=== PATIENT | male | born 1935 | race Caucasian/White ===

== ENCOUNTER 2016-09-20 06:27 | Inpatient (IN) | payer MEDICARE, MEDICAID ==
[2016-08-30 11:55] VITALS: BMI 30.2
[2016-08-30 12:31] VITALS: BP_SYST 142; RESP 20; TEMP 98.3
[2016-09-20] VITALS (23 sets, daily range): BP systolic 94–172; RESP 12–28; TEMP 97–98.7
[~2016-09-20] VITALS: Ht 167.6 cm; Wt 84.8 kg
[2016-09-20] MEDS ORDERED: TRANEXAMIC ACID IV ONE ×4 (06:35)
[2016-09-20] MEDS ORDERED: CEFAZOLIN 2,000 MG in SODIUM CHLORIDE 0.9% 100 ML IV ONE (06:35)
[2016-09-20] MEDS ORDERED: ROPIVACAINE 0.5% 139 MG, EPINEPHrine 1:1,000 0.2 MG, KETOROLAC INJ 30 MG, MORPHINE 10 MG SUBQ ONE ×4 (06:35)
[2016-09-20] MEDS ORDERED: SODIUM CHLORIDE 0.9% IV ONE ×4 (06:35)
[2016-09-20] MEDS ORDERED: ONDANSETRON 4 MG VIAL IV PRN (07:05)
[2016-09-20] MEDS ORDERED: MEPERIDINE 25 MG/ML IV PRN (07:05)
[2016-09-20] MEDS ORDERED: MORPHINE 4 MG/ML SYR IV PRN ×2 (07:05→09:10)
[2016-09-20] MEDS ORDERED: DILAUDID 1 MG/ML AMP IV PRN (07:05)
[2016-09-20] MEDS ORDERED: OXYCODONE 5 MG TAB PO PRN (07:05)
[2016-09-20] MEDS ORDERED: MORPHINE 2 MG/ML SYR IV PRN ×2 (07:05→09:10)
[2016-09-20] MEDS ORDERED: LIDOCAINE 1% BUFFERED 1 ML SYR INTRADERM PRN (07:10)
[2016-09-20] MEDS ORDERED: LACT RINGERS 1,000 ML IV SCH (07:10)
[2016-09-20] MEDS ORDERED: MIDAZOLAM 2 MG/2 ML INJ IV ONE (07:10)
[2016-09-20] MEDS ORDERED: GLYCOPYRROLATE 0.2 MG/ML VIAL IV ONE ×2 (07:10→11:17)
[2016-09-20] MEDS ORDERED: KETOROLAC 30 MG/ML VIAL IV PRN (09:10)
[2016-09-20] MEDS ORDERED: ACETAMINOPHEN 325 MG TAB PO PRN (09:10)
[2016-09-20] MEDS ORDERED: DIPHENHYDRAMINE 25 MG CAP PO PRN (09:10)
[2016-09-20] MEDS ORDERED: BACITRACIN 50,000 UNITS INJ IRRIG ONE (11:14)
[2016-09-20] MEDS ORDERED: NEOSTIGMINE 10 MG/10 ML VIAL IV ONE (11:17)
[2016-09-20] MEDS ORDERED: FENTANYL 100 MCG/2 ML AMP IV ONE (11:17)
[2016-09-20] MEDS ORDERED: ROCURONIUM 50 MG VIAL IV ONE (11:17)
[2016-09-20] MEDS ORDERED: ONDANSETRON 4 MG VIAL IV PUSH ONE (11:17)
[2016-09-20] MEDS ORDERED: LIDOCAINE 2% SYR 5 ML IV ONE (11:17)
[2016-09-20] MEDS ORDERED: PROPOFOL 50ML VIAL IV ONE (11:17)
[2016-09-20] MEDS ORDERED: ACETAMINOPHEN 1,000 MG/100 ML IV ONE (11:17)
[2016-09-20] MEDS ORDERED: DILAUDID 1 MG/ML AMP IV ONE (11:17)
[2016-09-20] MEDS ORDERED: DEXAMETHASONE 4 MG/ML VIAL IV ONE (11:17)
[2016-09-20] MEDS ORDERED: MISSING DOSE XX ONE (12:25)
[2016-09-20] MEDS: CEFAZOLIN 2,000 MG in SODIUM CHLORIDE 0.9% 100 ML IV SCH ×2 (12:34→19:31)
[2016-09-20] MEDS: LACT RINGERS 1,000 ML IV SCH (12:35)
[2016-09-20] MEDS: PANTOPRAZOLE 20 MG TAB PO SCH (12:52)
[2016-09-20] MEDS: ONDANSETRON 4 MG VIAL IV PRN ×2 (13:57→20:24)
[2016-09-20] MEDS: CALCIUM CARB/VIT D3 600 MG TAB PO SCH (14:52)
[2016-09-20] MEDS: SENNA 8.6 MG TAB PO SCH (21:29)
[2016-09-20] MEDS: DOCUSATE SOD 100 MG CAP PO SCH (21:29)
[2016-09-20] MEDS: DONEPEZIL HCL 5 MG TAB PO SCH (21:29)
[2016-09-21] VITALS (8 sets, daily range): BP systolic 127–158; RESP 16–20; TEMP 98.1–99.9; Ht 167.6 cm; Wt 84.8 kg
[2016-09-21] MEDS: CEFAZOLIN 2,000 MG in SODIUM CHLORIDE 0.9% 100 ML IV SCH ×2 (00:26→06:32)
[2016-09-21] MEDS: TEMAZEPAM 15 MG CAP PO PRN (00:26)
[2016-09-21] MEDS: LACT RINGERS 1,000 ML IV SCH (00:54)
[2016-09-21] MEDS ORDERED: SODIUM CHLORIDE 0.9% FLUSH BAG 500 ML IV PRN (06:00)
[2016-09-21] MEDS ORDERED: SALINE FLUSH 10 ML FLUSH PRN (06:00)
[2016-09-21] MEDS: ENOXAPARIN 40 MG/0.4 ML SYR SUBQ SCH (06:32)
[2016-09-21] MEDS: PANTOPRAZOLE 20 MG TAB PO SCH (06:32)
[2016-09-21] MEDS: CALCIUM CARB/VIT D3 600 MG TAB PO SCH (08:22)
[2016-09-21] MEDS: POLYETHYLENE GLYCOL 17 GM PACKET PO SCH (08:22)
[2016-09-21] MEDS: MAG HYDROX 30 ML UDC PO SCH (08:22)
[2016-09-21] MEDS: DOCUSATE SOD 100 MG CAP PO SCH ×2 (08:22→22:15)
[2016-09-21] MEDS: SALINE FLUSH 10 ML FLUSH SCH ×2 (08:22→22:14)
[2016-09-21] MEDS: SENNA 8.6 MG TAB PO SCH ×2 (08:22→22:16)
[2016-09-21] MEDS: FLINTSTONES COMPLETE PO SCH (08:22)
[2016-09-21] MEDS ORDERED: BISACODYL 10 MG SUPP RECTAL PRN (10:20)
[2016-09-21] MEDS ORDERED: FLEET ENEMA 132 ML BTL RECTAL PRN (10:20)
[2016-09-21] MEDS: CYANOCOBALAMIN 1000 MCG/ML VIAL IM SCH (14:52)
[2016-09-21] MEDS: IRON SUCROSE COMPLEX 400 MG in SODIUM CHLORIDE 0.9% 250 ML IV SCH (14:52)
[2016-09-21] MEDS: DONEPEZIL HCL 5 MG TAB PO SCH (21:00)
[2016-09-22] MEDS: TEMAZEPAM 15 MG CAP PO PRN (01:00)
[2016-09-22 04:53] VITALS: BP_SYST 139; RESP 22; TEMP 99.1
[2016-09-22] MEDS: ENOXAPARIN 40 MG/0.4 ML SYR SUBQ SCH (07:04)
[2016-09-22] MEDS: PANTOPRAZOLE 40 MG TAB PO SCH (07:07)
[2016-09-22 07:45] VITALS: BP_SYST 143; RESP 20; TEMP 98.8
[2016-09-22] MEDS ORDERED: MISSING DOSE XX ONE (10:00)
[2016-09-22] MEDS: DOCUSATE SOD 100 MG CAP PO SCH ×2 (10:01→21:39)
[2016-09-22] MEDS: SENNA 8.6 MG TAB PO SCH ×2 (10:01→21:39)
[2016-09-22] MEDS: MAG HYDROX 30 ML UDC PO SCH (10:01)
[2016-09-22] MEDS: FLINTSTONES COMPLETE PO SCH (10:01)
[2016-09-22] MEDS: CALCIUM CARB/VIT D3 600 MG TAB PO SCH (10:01)
[2016-09-22] MEDS: SALINE FLUSH 10 ML FLUSH SCH ×2 (10:01→21:39)
[2016-09-22] MEDS: POLYETHYLENE GLYCOL 17 GM PACKET PO SCH (10:01)
[2016-09-22] MEDS: IRON SUCROSE COMPLEX 400 MG in SODIUM CHLORIDE 0.9% 250 ML IV SCH (10:02)
[2016-09-22 12:00] VITALS: BP_SYST 120; RESP 18; TEMP 99.1
[2016-09-22] MEDS: CYANOCOBALAMIN 1000 MCG/ML VIAL IM SCH (13:00)
[2016-09-22 15:34] VITALS: BP_SYST 115; RESP 18; TEMP 99.2
[2016-09-22 19:33] VITALS: BP_SYST 116; RESP 18; TEMP 98.9
[2016-09-22 19:34] VITALS: BP_SYST 121; RESP 18; TEMP 98.6
[2016-09-22] MEDS: DONEPEZIL HCL 5 MG TAB PO SCH (21:39)
[2016-09-23 02:47] VITALS: BP_SYST 165; RESP 18; TEMP 98.3
[2016-09-23] MEDS: PANTOPRAZOLE 40 MG TAB PO SCH (06:17)
[2016-09-23] MEDS: ENOXAPARIN 40 MG/0.4 ML SYR SUBQ SCH (06:18)
[2016-09-23 07:15] VITALS: BP_SYST 151; RESP 20; TEMP 98.6
[2016-09-23] MEDS: MAG HYDROX 30 ML UDC PO SCH (09:00)
[2016-09-23] MEDS: SENNA 8.6 MG TAB PO SCH (09:00)
[2016-09-23] MEDS: POLYETHYLENE GLYCOL 17 GM PACKET PO SCH (09:00)
[2016-09-23] MEDS: FLINTSTONES COMPLETE PO SCH (09:07)
[2016-09-23] MEDS: CALCIUM CARB/VIT D3 600 MG TAB PO SCH (09:07)
[2016-09-23] MEDS: DOCUSATE SOD 100 MG CAP PO SCH (09:07)
[2016-09-23] MEDS ORDERED: MISSING DOSE XX ONE (09:15)
[2016-09-23] MEDS: CYANOCOBALAMIN 1000 MCG/ML VIAL IM SCH (11:36)
[2016-09-23] MEDS: SALINE FLUSH 10 ML FLUSH SCH (11:42)
[2016-09-23 12:00] VITALS: BP_SYST 155; RESP 18; TEMP 98
[2016-09-23 12:05] VITALS: BP_SYST 151; RESP 20; TEMP 98.6
== END 2016-09-23 14:42 | DRG 470 ==
LOC: ENRESERVTM → ENRESERVDT → ENPENDDIS 06:27 → SDS 06:27 → 2NO 10:08
PROVIDERS: ADMIT Internal Medicine; ATTEND Internal Medicine
PROC: 0SR904A Replacement of Right Hip Joint with Ceramic on Polyethylene Synthetic Substitute, Uncemented, Open Approach (ICD-10-PCS; principal; 2016-09-20 07:23)
DX: M16.11 Unilateral primary osteoarthritis, right hip (principal); F03.90 Unspecified dementia, unspecified severity, without behavioral disturbance, psychotic disturbance, mood disturbance, and anxiety; I10 Essential (primary) hypertension; D50.9 Iron deficiency anemia, unspecified; K21.9 Gastro-esophageal reflux disease without esophagitis; I25.10 Atherosclerotic heart disease of native coronary artery without angina pectoris; E78.5 Hyperlipidemia, unspecified; Z82.49 Family history of ischemic heart disease and other diseases of the circulatory system; N40.0 Benign prostatic hyperplasia without lower urinary tract symptoms
CPT/HCPCS: 76000; 80053; 82607; 82728; 82746; 83540; 84466; 85025; 85046; 86850; 86900; 86901; 93005; 94762; 94799